=== PATIENT | female | born 1985 | race Caucasian/White ===

== ENCOUNTER → 2021-03-15 09:37 | Observation (INO) ==
[2021-03-15 05:50] VITALS: BP 133/86
[2021-03-15 05:55] LABS: Bilirubin,Urine Negative (Negative); Blood,Urine Negative (Negative); Clarity,Urine Clear (Clear); Color,Urine Colorless (Yellow); Glucose,Urine (UA) Normal (Normal); Ketones,Urine Negative (Negative); Leukocyte Esterase,Urine Negative (Negative); Nitrite,Urine Negative (Negative); Protein,Urine Negative (Neg-Trace); Specific Gravity,Urine 1.005 (1.010-1.025); Urobilinogen,Urine Normal (Normal)
[~2021-03-15 09:37] MED LIST: NIFEdipine Immed Rel 10 MG CAPSULE PO STA; Ringers Solution, Lactated 1,000 ML IVC ONE; Ringers Solution, Lactated 1,000 ML ONE
== END | disposition home or self-care (01) ==
LOC: 1NENULAB
PROVIDERS: ADMIT Obstetrics & Gynecology; ATTEND Obstetrics & Gynecology

== ENCOUNTER → 2021-04-12 22:15 | Observation (INO) ==
[~2021-04-12 22:15] MED LIST changes: +*HR* Nalbuphine 10 MG/ML AMPUL IV PRN; -NIFEdipine Immed Rel 10 MG CAPSULE PO STA; -Ringers Solution, Lactated 1,000 ML IVC ONE; -Ringers Solution, Lactated 1,000 ML ONE
== END | disposition home or self-care (01) ==
LOC: 1NENULAB
PROVIDERS: ADMIT Advanced Practice Midwife; ATTEND Advanced Practice Midwife

== ENCOUNTER 2021-04-21 15:30 | Inpatient (IN) ==
[~2021-04-21 15:30] MED LIST changes: -*HR* Nalbuphine 10 MG/ML AMPUL IV PRN; +Azithromycin 500 MG in 0.9 % Sodium Chloride 250 ML IVPB PRN; +Famotidine 20 MG/2 ML VIAL IVP PRN; +Metoclopramide 10 MG/2 ML VIAL IVP PRN; +Naloxone 0.4 MG/ML INJ IVP PRN; +Ondansetron 4 MG/2 ML VIAL IVP PRN; +Oxytocin 20 units/ LR 1000 mL 20 UNIT/1,000 ML BAG IVC SCH; +Ringers Solution, Lactated 1,000 ML IVC SCH
[2021-04-21 15:34] LABS: Basophils % 0.3 %; Eosinophils # 0.1 K/mcL (0.0-0.6); Eosinophils % 1.1 %; Hematocrit 36.8 % (35.3-44.9); Hemoglobin 12.2 g/dL (11.5-15.4); Immature Granulocytes % 0.8 % (0-4); Lymphocytes # 1.8 K/mcL (0.6-4.6); Lymphocytes % 14.7 %; Mean Corpuscular HGB Conc 33.2 g/dL (31.6-35.5); Mean Corpuscular Hemoglobin 29.7 pg (28.0-33.3); Mean Corpuscular Volume 89.5 fL (83.0-100.0); Mean Platelet Volume 11.9 fL (9.4-12.4); Monocytes # 0.7 K/mcL (0.0-1.3); Monocytes % 5.7 %; Neutrophils # 9.3 K/mcL (1.6-8.9); Platelet Count 210 K/mcL (140-400); Red Blood Count 4.11 M/mcL (3.82-4.97); Red Cell Distribution Width 14.3 % (11.5-14.5); Segmented Neutrophils % 77.4 %; White Blood Count 11.9 K/mcL (4.3-11.1)
[2021-04-21 16:28] LABS: Amphetamine Screen,Urine Negative ng/mL (Cutoff=1000); Barbiturate Screen,Urine Negative ng/mL (Cutoff=200); Benzodiazepines Screen,Urine Negative ng/mL (Cutoff=200); Cannabinoid Screen,Urine Negative ng/mL (Cutoff = 50); Cocaine Screen,Urine Negative ng/mL (Cutoff= 300); Opiate Screen,Urine Negative ng/mL (Cutoff=300); Phencyclidine Screen,Urine Negative ng/mL (Cutoff=25)
[2021-04-21] MEDS: *HR* Nalbuphine 10 MG/ML AMPUL IV PRN ×2 (17:53→20:47)
[2021-04-21] MEDS ORDERED: Ropivacaine/PF 0.2% 20 ML VIAL EP ONE (20:54)
[2021-04-21] MEDS ORDERED: EPHEDrine 50 MG/ML VIAL IVP PRN (20:54)
[2021-04-21] MEDS ORDERED: Epidural Premix (fent/bupiv) 110 ML EP SCH (21:00)
[2021-04-21] MEDS ORDERED: Epidural Premix (fent/bupiv) 110 ML EP ONE (21:00)
[2021-04-21] MEDS ORDERED: Acetaminophen 325 MG TABLET PO ONE (22:31)
[2021-04-22] MEDS ORDERED: Oxytocin 20 units/ LR 1000 mL 20 UNIT/1,000 ML BAG IVC SCH (03:13)
[2021-04-22] MEDS ORDERED: Lanolin 7 G OINT...G. TP PRN (03:13)
[2021-04-22] MEDS ORDERED: Benzocaine/Menthol 56 GM AEROSOL SPRAY TP PRN (03:13)
[2021-04-22] MEDS ORDERED: Oxytocin 20 units/ LR 1000 mL 20 UNIT/1,000 ML BAG IVC ONE (03:29)
[2021-04-22] MEDS: Ibuprofen 600 MG TABLET PO PRN ×4 (03:38→20:16)
[2021-04-22] MEDS: Acetaminophen 325 MG TABLET PO PRN ×3 (05:21→17:35)
[2021-04-22] MEDS: Prenatal Vit/FA 1 EACH TABLET PO SCH (07:47)
[2021-04-22 21:46] VITALS: O2SAT 95
[2021-04-23] MEDS: Acetaminophen 325 MG TABLET PO PRN ×2 (02:04→07:49)
[2021-04-23] MEDS: Ibuprofen 600 MG TABLET PO PRN (05:47)
[2021-04-23] MEDS: Prenatal Vit/FA 1 EACH TABLET PO SCH (07:49)
[2021-04-23 08:08] VITALS: BP 111/75; PULSE 68; TEMP 98.2
== END 2021-04-23 11:08 | disposition home or self-care (01) | DRG 805 ==
LOC: 1NENULAB → 1NENUOBS 04-22 03:57
PROVIDERS: ADMIT Advanced Practice Midwife; ATTEND Advanced Practice Midwife